=== PATIENT | male | born 2000 | race American Indian/Alaskan Native ===

== ENCOUNTER 2021-09-05 13:46 | Emergency (ER) | payer SELFPAY ==
[2021-09-05] MEDS ORDERED: TETANUS,DIPH,PERTUSS(ACELL) VACCINE 0.5 ML SYRINGE IM ONE (21:34)
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
[2021-09-05 23:01] VITALS: BP 118/72
== END 2021-09-06 00:08 | disposition home or self-care (01) ==
LOC: ED 13:46
DX: T23.202A Burn of second degree of left hand, unspecified site, initial encounter (principal); T20.20XA Burn of second degree of head, face, and neck, unspecified site, initial encounter; X16.XXXA Contact with hot heating appliances, radiators and pipes, initial encounter; Y93.89 Activity, other specified; Y92.89 Other specified places as the place of occurrence of the external cause; Y99.8 Other external cause status
CPT/HCPCS: 90471; 90715; 99282